=== PATIENT | male | born 1970 | race Caucasian/White ===

== ENCOUNTER 2022-10-06 10:52 | Emergency (ER) | payer OTHER, SELFPAY ==
--- NOTE | ~2022-10-06 | CT_ITS ---
EXAMINATION: CT ABDOMEN AND PELVIS WITH CONTRAST CLINICAL INFORMATION: Right buttock/hip abscess COMPARISON: None available. TECHNIQUE: Multidetector volumetric images were obtained from the superior aspect of the liver through the pubic symphysis following administration 85 mL of Omnipaque 350 intravenous contrast. Sagittal and coronal reformatted images were obtained on the technologist's workstation. Oral contrast: No This CT examination was performed using dose optimization techniques as appropriate, variously including the following: *Automated exposure control *Adjustment of mA and/or kV according to patient size (this includes techniques or standardized protocols for targeted exams where dose is matched to indication/reason for exam; i.e. extremities or head) *Use of iterative reconstruction technique DLP: 841 mGy-cm FINDINGS: LUNG BASES: The visualized lung bases are unremarkable. LIVER, GALLBLADDER, AND BILIARY TREE: The liver is normal in size, shape, and attenuation. No focal hepatic lesion or biliary ductal dilatation is present. The gallbladder is unremarkable with no evidence of radiopaque gallstones, gallbladder wall thickening, or obvious pericholecystic inflammatory changes. PANCREAS: Unremarkable. SPLEEN: Unremarkable. ADRENAL GLANDS: Unremarkable. KIDNEYS AND URETERS: The kidneys are normal in size, shape, and attenuation. No hydronephrosis, hydroureter, or calculi seen. No perinephric stranding. BLADDER: Decompressed bladder with no gross abnormality. GASTROINTESTINAL TRACT: The stomach is unremarkable. Normal caliber small bowel. No obstruction. Normal appendix. Scattered colonic diverticulosis without diverticulitis. No free air or free fluid. ABDOMINAL WALL: No significant hernia is appreciated. There is a fluid collection in the right gluteal region. This involves the right gluteus medius and minimus muscles laterally as well as extension more into the superficial fat. This abuts the gluteus maximum and is without definite involvement. This collection has multiple loculations. This measures approximately 8.3 x 2.7 cm in transaxial dimension on series 3 image 58. This extends approximately 6.9 cm in CC dimension. The more superficial component measures 4.9 x 4 cm in transaxial dimension with interspersed fat. This extends 2 cm CC. There is also an area of possible fluid posterior to the right hip, with evaluation limited due to artifact from the adjacent hardware. This measures 3.5 x 2.4 cm on series 3 image 75. Superficial edema present throughout this area. LYMPH NODES: Mildly prominent right iliac lymph nodes are seen. For instance there is a 1.2 cm short axis node along the external iliac vessels on series 3 image 73. Additional prominent nodes are seen. VASCULAR: Normal caliber aorta with mild atherosclerotic calcification. PELVIC VISCERA: The prostate and seminal vesicles are unremarkable. OSSEOUS STRUCTURES: No acute or suspicious osseous abnormality. Degenerative changes at L5-S1 with vacuum disc phenomenon. CT/CT abdomen pelvis w IV con IMPRESSION: 1. Multiloculated fluid collection in the right gluteal region involving the right gluteus medius and minimus muscles laterally and extending more superficially. This is concerning for abscess. 2. Additional fluid collection is seen posterior to the right hip, with evaluation limited due to artifact from the adjacent hardware. 3. Prominent right iliac lymph nodes are likely reactive. Fleischner guidelines were followed.
--- NOTE | 2022-10-06 11:20 | ED_ITS ---
HPI - Skin/Abscess/Foreign Bdy General Chief complaint: Skin/Abscess/Foreign Body Stated complaint: cyst on hip Time Seen by Provider: 10/06/22 13:09 Source: patient Mode of arrival: ambulatory Limitations: no limitations History of Present Illness HPI narrative: 52 yold male with pmh of IV drug use presents to the Ed for right buttock redness and swelling and pain. Patient is concenred for abscess. patient denies inject IV drug use into right buttock. patient states presents redness on buttcok of a couple of days. Patient denies any fever, chills, night sweats, or rash else where on the body. Related Data Previous Rx's Medication Instructions Recorded cephalexin 500 mg capsule 500 mg PO QID 7 days #28 caps 10/06/22 doxycycline hyclate 100 mg tablet 100 mg PO BID 7 days #14 tabs 10/06/22 naproxen 500 mg tablet 500 mg PO BID PRN pain 7 days #14 10/06/22 tabs Allergies Allergy/AdvReac Type Severity Reaction Status Date / Time No Known Allergies Allergy Verified 10/06/22 11:21 Review of Systems Review of Systems: Right buttock pain/redness Yes all other systems are reviewed and are negative PMFSH Social History Social History Advance Directives: No Advance Directives Information Provided: Yes Physical Exam Vital Signs: Vital Signs: Last Vital Signs Temp 97.6 F 10/06/22 11:21 Pulse 74 10/06/22 11:21 Resp 18 10/06/22 11:21 BP 114/65 10/06/22 11:21 Pulse Ox 98 10/06/22 11:21 O2 Del Method Room Air 10/06/22 11:21 BMI result Body Mass Index 27.0 Const: General: cooperative, healthy appearing, comfortable, no acute distress, well developed, alert and awake Orientation/consciousness: oriented to person, oriented to place, oriented to time and patient oriented x3 HEENT: Head: Yes normal to inspection, Yes No palpable skull fracture present, Yes normocephalic, Yes atraumatic and No abrasion Eyes: General: appearance normal, both eyes and all related structures Neck: Neck: Yes normal visual inspection, Yes full ROM, Yes no lymphadenopathy, Yes no meningeal signs, Yes trachea midline, Yes supple, No anterior neck swelling and No tender Chest: Chest palpation & inspection: normal inspection of the chest and normal palpation of entire chest wall Resp: Effort & Inspection: normal respiratory effort and able to speak in complete sentences Cardio: Jugular venous distension: no JVD Heart sounds: S1 normal heart sound present and S2 normal heart sound present GI: Inspection: Yes normal to inspection and No abdominal wall ecchymosis Palpation (GI): Soft to palpation, not firm, nontender, no guarding and not rigid : General: No CVA tenderness and Yes no CVA tenderness Back/Spine/Pelvis: Other: Right buttock Back: no CVA tenderness, No CVA tenderness and No back tenderness Skin: General skin exam: no rashes or lesions noted and elasticity normal Neuro: General: oriented to person, oriented to place, oriented to time, patient oriented x3, gait normal, tone normal, moves all extremities, Normal light touch and pain sensation, no meningeal signs, no focal motor deficits, CN's II-XI intact bilaterally and normal sensation to monofilament Extrem: General: Yes normal to inspection and Yes full ROM Psych: Appearance: grossly normal, well kempt and not disheveled Course Course Course Narrative: This is a rapid medical exam. Deferred additional HPI, ROS, PE to primary provider. 52 yo male with history of pelvic/hip fx with repair several yrs ago here with complaints of right hip erythema/swelling ?cyst x 3 weeks. No fever. On exam there is a posterior hip incision site with surrounding erythema/swelling with limited ROM of the joint on exam. Will likely need CT with IV contrast, will obtain labs. VSS Medications Administered Discontinued Medications Generic Name Dose Route Start Last Admin Trade Name Freq PRN Reason Stop Dose Admin Piperacillin Sod/Tazobactam 50 mls @ 100 mls/hr 10/06/22 14:38 10/06/22 15:26 Sod 3.375 gm/ Sodium Chloride IV 10/06/22 15:07 Infused ONCE ONE Infusion Iohexol 100 ml 10/06/22 13:45 10/06/22 13:45 Iohexol 350 Mg/Ml 100 Ml Infus..Btl IV 10/06/22 13:46 85 ml ONCE ONE Administration Medical Decision Making Medical Decision Making [facility] Narrative: 52-year-old male presents to ED for right buttock redness swelling and pain for couple of days without any fever or chills. Patient states history of pelvic hip repair with hardware and was concerned for infection. Vital signs are stable. ESR CRP elevated. CT scan shows abscess of right gluteal muscles tracking to right posterior hips near hip hardware. Case discussd general surgeon Dr. Valera recommends consultation by orthopedic surgeon. Orthopedic GEETA Bey who spoke With Dr. Bolanos recommended patient be admitted to medical team for IV antibiotics and then they will follow as off service consulting team. Patient refused to be admitted and signed out against medical advice knowin risk of , sepsis, disability, and worsening symptom. Differential Diagnosis Differential Diagnoses: The differential diagnosis associated with the presentation includes ( Septic joint, gluteal abscess, sepsis, necrotizing fasciitis,) Admission/Observation Consideration of admission/observation: Escalation of care including admission/observation considered Consult Healthcare Provider Management of the patient was discussed with: Estimator Project Manager (GEETA Bey Orthopedic, Dr[facility] Valera [facility] Lab Data MDM Lab Attestation statement: I reviewed the patient's lab results. 10/06/22 12:09 10/06/22 11:46 Labs: Lab Results 10/06/22 10/06/22 10/06/22 Range/Units 11:46 11:46 12:09 WBC 11.1 H (4.8-10.8) X10*3/uL RBC 4.41 L (4.60-5.80) X10*6/uL Hgb 12.7 L (14.0-18.0) g/dl Hct 39.4 L (42.0-52.0) % MCV 89.3 (80.0-98.0) fL MCH 28.8 (27.0-33.0) pg MCHC 32.2 (31.0-36.0) g/dl RDW 12.9 (11.0-16.0) % Plt Count 256 (160-400) X10*3/uL MPV 8.6 L (9.4-12.4) fL Immature Gran % (Auto) 0.5 H (0.0-0.4) % Neut % (Auto) 72.2 (45-73) % Lymph % (Auto) 18.0 L (20-40) % [place] % (Auto) 5.6 (2-11) % Eos % (Auto) 3.2 (0-4) % Baso % (Auto) 0.5 (0-2) % Lymph # (Auto) 2.0 (1.2-4.9) X10*3/uL [place] # (Auto) 0.6 (0.1-1.2) X10*3/uL Eos # (Auto) 0.4 (0.0-0.4) X10*3/uL Baso # (Auto) 0.1 (0.0-0.2) X10*3/uL Abs Immat Gran (auto) 0.05 H (0.00-0.03) X10*3/uL Absolute Neuts (auto) 8.0 (2.0-8.3) x10*3/uL Absolute Nucleated RBC 0.000 (0.0-0.012) X10*3/uL Nucleated RBC % (auto) 0.0 (0.0-0.2) /100WBC ESR (0-15) MM/HR Sodium 135 (135-145) mmol/L Potassium 5.0 (3.3-5.1) mmol/L Chloride 104 (96-108) mmol/L Carbon Dioxide 26 (22-29) mmol/L Anion Gap 10 L (12-20) BUN 16 (9-16) mg/dL Creatinine 0.74 (0.5-1.4) mg/dL Estim Creat Clear Calc 133.4 Estimated GFR > 60 Random Glucose 101 (60-115) mg/dL Lactic Acid 0.7 (0.5-2.0) mmol/L Calcium 9.6 (8.4-10.2) mg/dL Total Bilirubin 0.3 (0.0-1.0) mg/dL Direct Bilirubin 0.1 (0.0-0.5) mg/dL AST 26 (5-37) U/L ALT 19 (0-40) U/L Alkaline Phosphatase 119 H (39-117) U/L C-Reactive Protein 4.99 H (< or = 0.50) mg/dL Total Protein 8.0 (6.5-8.0) g/dL Albumin 3.9 (3.5-5.0) g/dL 10/06/22 Range/Units 12:09 WBC (4.8-10.8) X10*3/uL RBC (4.60-5.80) X10*6/uL Hgb (14.0-18.0) g/dl Hct (42.0-52.0) % MCV (80.0-98.0) fL MCH (27.0-33.0) pg MCHC (31.0-36.0) g/dl RDW (11.0-16.0) % Plt Count (160-400) X10*3/uL MPV (9.4-12.4) fL Immature Gran % (Auto) (0.0-0.4) % Neut % (Auto) (45-73) % Lymph % (Auto) (20-40) % [place] % (Auto) (2-11) % Eos % (Auto) (0-4) % Baso % (Auto) (0-2) % Lymph # (Auto) (1.2-4.9) X10*3/uL [place] # (Auto) (0.1-1.2) X10*3/uL Eos # (Auto) (0.0-0.4) X10*3/uL Baso # (Auto) (0.0-0.2) X10*3/uL Abs Immat Gran (auto) (0.00-0.03) X10*3/uL Absolute Neuts (auto) (2.0-8.3) x10*3/uL Absolute Nucleated RBC (0.0-0.012) X10*3/uL Nucleated RBC % (auto) (0.0-0.2) /100WBC ESR 23 H (0-15) MM/HR Sodium (135-145) mmol/L Potassium (3.3-5.1) mmol/L Chloride (96-108) mmol/L Carbon Dioxide (22-29) mmol/L Anion Gap (12-20) BUN (9-16) mg/dL Creatinine (0.5-1.4) mg/dL Estim Creat Clear Calc Estimated GFR Random Glucose (60-115) mg/dL Lactic Acid (0.5-2.0) mmol/L Calcium (8.4-10.2) mg/dL Total Bilirubin (0.0-1.0) mg/dL Direct Bilirubin (0.0-0.5) mg/dL AST (5-37) U/L ALT (0-40) U/L Alkaline Phosphatase (39-117) U/L C-Reactive Protein (< or = 0.50) mg/dL Total Protein (6.5-8.0) g/dL Albumin (3.5-5.0) g/dL Independent Interpretation I performed an independent interpretation of an: CT Scan Radiology Impression Discussion of test interpretation with radiology: I have reviewed the radiologist's reading. Prescription Management I considered prescription management with: Antibiotic Chronic Conditions Patient?s care impacted by: Other (Subustance abse) Discharge Plan Discharge Clinical Impression: Abscess of skin or subcutaneous tissue Patient Disposition: Left Against Medical Advice Instructions: Abscess (ED) Additional Instructions: you are signing out against medical advice. Please return to the median medially for any worsening symptoms or any other complaints. You are always welcome back to the ER for admission. Please follow-up with the primary care provider and orthopedic surgeon in [place] performed your hip fracture Repair Prescriptions: New cephalexin 500 mg capsule 500 mg PO QID 7 Days Qty: 28 0RF doxycycline hyclate 100 mg tablet 100 mg PO BID 7 Days Qty: 14 0RF naproxen 500 mg tablet 500 mg PO BID PRN (Reason: pain) 7 Days Qty: 14 0RF Stand Alone Forms: Against Medical Advice, Work/School Release Interventions: ED Discharge Assessment Last Done: 10/06/22 16:54 Discharge Date/Time: 10/06/22 16:55 Print Language: Italian
[2022-10-06 11:21] VITALS: BP 114/65; PULSE 74; RESP 18; TEMP 36.4; O2SAT 98; BMI 27.0
[2022-10-06 12:10] LABS: Lactic Acid 0.7 mmol/L (0.5-2.0)
[2022-10-06 12:15] LABS: MANUAL DIFF FLAG NO
[2022-10-06 12:19] LABS: Alanine Aminotransferase 19 U/L (0-40); Albumin Level 3.9 g/dL (3.5-5.0); Alkaline Phosphatase 119 U/L (39-117); Anion Gap 10 (12-20); Aspartate Amino Transferase 26 U/L (5-37); Bilirubin Direct 0.1 mg/dL (0.0-0.5); Bilirubin Total 0.3 mg/dL (0.0-1.0); Blood Urea Nitrogen 16 mg/dL (9-16); C Reactive Protein 4.99 mg/dL (< or = 0.50); Calcium 9.6 mg/dL (8.4-10.2); Carbon Dioxide 26 mmol/L (22-29); Chloride 104 mmol/L (96-108); Creatinine Clr Calc Pharmacy 133.4; Estimated Glomerular Filt Rate > 60; Glucose Random 101 mg/dL (60-115); Sodium 135 mmol/L (135-145)
[2022-10-06 12:19] LABS: Basophils Absolute Auto 0.1 X10*3/uL (0.0-0.2); Basophils Percent Auto 0.5 % (0-2); Eosinophils Absolute Auto 0.4 X10*3/uL (0.0-0.4); Eosinophils Percent Auto 3.2 % (0-4); Hematocrit 39.4 % (42.0-52.0); Hemoglobin 12.7 g/dl (14.0-18.0); Imm Gran Abs Auto 0.05 X10*3/uL (0.00-0.03); Imm Gran Pct Auto 0.5 % (0.0-0.4); Mean Corpuscular HGB Conc 32.2 g/dl (31.0-36.0); Mean Corpuscular Hemoglobin 28.8 pg (27.0-33.0); Mean Corpuscular Volume 89.3 fL (80.0-98.0); Mean Platelet Volume 8.6 fL (9.4-12.4); Monocytes Absolute Auto 0.6 X10*3/uL (0.1-1.2); Monocytes Percent Auto 5.6 % (2-11); Neutrophils Percent Auto 72.2 % (45-73); Platelet Count 256 X10*3/uL (160-400); Red Blood Count 4.41 X10*6/uL (4.60-5.80); Red Cell Distribution Width 12.9 % (11.0-16.0); White Blood Count 11.1 X10*3/uL (4.8-10.8)
[2022-10-06 13:14] LABS: Erythrocyte Sedimentation Rate 23 MM/HR (0-15)
[2022-10-06] MEDS: iohexoL 350 MG/ML 100 ML INFUS..BTL IV (13:45)
--- NOTE | 2022-10-06 14:08 | PC.NURSE ---
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
[2022-10-06] MEDS: Piperacillin Sodium/Tazobactam 3.375 GM in 0.9 % Sodium Chloride 50 ML IV (14:48)
== END 2022-10-06 16:55 | disposition left against medical advice (07) ==
PROVIDERS: Nurse Practitioner Family; Emergency Provider Emergency Medicine
DX: L02.31 Cutaneous abscess of buttock (principal); R10.2 Pelvic and perineal pain; Z79.899 Other long term (current) drug therapy
CPT/HCPCS: 36415; 74177; 80048; 80076; 83605; 85025; 85652; 86140; 87040; 96365; 99283; 99284; J2543; Q9967